=== PATIENT | female | born 1990 | race Caucasian/White ===

== ENCOUNTER 2021-11-03 09:29 | Emergency (ER) | payer OTHER ==
[~2021-11-03] VITALS: Ht 162.6 cm; Wt 65.8 kg
--- NOTE | 2021-11-03 09:40 | NUR ---
Patient to ER bed 8 to gown for evaluation. Side rails up. Report given to Kari ORELLANA.
[2021-11-03 09:50] VITALS: BP_SYST 132
[2021-11-03 10:29] LABS: BASOPHILS % (AUTO) 0.4 % (0.0-2.0); EOSINOPHILS # (AUTO) 0.1 K/uL (0.0-0.4); EOSINOPHILS % (AUTO) 0.6 % (0.0-4.0); HEMATOCRIT 41.8 % (36-48); HEMOGLOBIN 14.2 g/dL (12.0-16.0); LYMPHOCYTES # (AUTO) 2.2 K/uL (1.0-5.5); LYMPHOCYTES % (AUTO) 25.9 % (20.5-51.5); MEAN CORPUSCULAR HEMOGLOBIN 30 pg (27-31); MEAN CORPUSCULAR HGB CONC 34 % (32-36); MEAN CORPUSCULAR VOLUME 89 fL (79.0-98.0); MONOCYTES # (AUTO) 0.7 K/uL (0.0-1.0); MONOCYTES % (AUTO) 8.8 % (1.7-9.3); NEUTROPHILS # (AUTO) 5.4 K/uL (1.8-7.7); NEUTROPHILS % (AUTO) 64.3 % (40.0-70.0); PLATELET COUNT (AUTO) 251 K/uL (130-430); RED BLOOD CELL COUNT(AUTO) 4.71 MIL/uL (4.2-6.2); RED CELL DISTRIBUTION WIDTH 13.2 % (9.0-15.0); WHITE BLOOD COUNT (AUTO) 8.4 K/uL (4.8-10.8)
[2021-11-03 10:32] LABS: BILIRUBIN,URINE NEGATIVE (NEGATIVE); BLOOD, URINE NEGATIVE (NEGATIVE); CLARITY/URINE CLEAR (CLEAR); GLUCOSE,URINE NEGATIVE (NEGATIVE); KETONES,URINE NEGATIVE (NEGATIVE); LEUKOCYTE ESTERASE ,URINE NEGATIVE (NEGATIVE); NITRITE, URINE NEGATIVE (NEGATIVE); PH,URINE 7.5 (5.0-8.0); PROTEIN URINE NEGATIVE (NEGATIVE); UROBILINOGEN,URINE 0.2 (0.2-1.0)
[2021-11-03 10:45] LABS: COLOR,URINE STRAW (YELLOW)
--- NOTE | 2021-11-03 10:46 | NUR ---
patient to ed with c/o small stain of brown vaginal discharge this am for the first time. patient states she is 6 weeks gestational with first preganancy. patient denies pain at this time.
[2021-11-03 11:08] LABS: CALCIUM 9.4 mg/dL (8.4-11.0); CREATININE 0.74 mg/dL (0.55-1.30); POTASSIUM 3.4 mmol/L (3.5-5.1)
--- NOTE | 2021-11-03 11:11 | NUR ---
Patient being transported to ultrasound via wheelchair
--- NOTE | 2021-11-03 11:28 | NUR ---
flu and covid specimens sent to lab by Thao ayon at this time
--- NOTE | 2021-11-03 11:29 | NUR ---
Hoa ORELLANA taking over patient care at this time
--- NOTE | 2021-11-03 11:50 | NUR ---
Patient returned from ultrasound via wheelchair
--- NOTE | 2021-11-03 12:15 | NUR ---
Report received from Elton morris RN. Pt awaiting further evaluation.
--- NOTE | 2021-11-03 12:55 | NUR ---
Made contact with patient. Patient alert and oriented, tearful due to uncertainty of test results. Reassured team will provide all help as needed and available. Also encouraged to seek out nursing for any assistance needed; understanding verbalized. Will continue to monitor.
--- NOTE | 2021-11-03 13:00 | NUR ---
Patient reported to computer support technician who reported to RN she is having "cramping" and "a lot of bleeding." Dr Simms informed. Stated she will go speak with patient shortly.
--- NOTE | 2021-11-03 14:00 | NUR ---
Patient given written and verbal discharge instructions and verbalizes understanding. ER MD discussed with patient the results and treatment provided. Patient in stable condition. ID arm band removed. Patient educated on pain management and to follow up with PMD. Pain scale 0/10. Opportunity for questions provided and answered.
== END 2021-11-03 14:03 | disposition home or self-care (01) ==
LOC: SED 09:29
DX: O20.0 Threatened abortion (principal); Z88.0 Allergy status to penicillin; Z3A.01 Less than 8 weeks gestation of pregnancy
CPT/HCPCS: 36415; 76801; 76817; 80048; 81003; 84702; 85025; 86886; 86900; 86901; 99284